=== PATIENT | female | born 1960 | race African-American/Black ===

== ENCOUNTER 2022-09-15 01:24 | Emergency (ER) | payer MEDICAID, MEDICARE ==
[~2022-09-15] VITALS: Ht 157.5 cm; Wt 65.0 kg
[2022-09-15 01:30] VITALS: BP 167/81
[2022-09-15] MEDS ORDERED: LOPE2CAP PO (03:07)
== END 2022-09-15 03:26 | disposition home or self-care (01) ==
LOC: ER 01:24
DX: A08.4 Viral intestinal infection, unspecified (principal)
CPT/HCPCS: 99283